=== PATIENT | female | born 1965 | race Caucasian/White ===

== ENCOUNTER 2019-05-25 15:20 | Emergency (ER) | payer SELFPAY ==
[2019-05-25] VITALS (19 sets, daily range): BP systolic 96–128; BP diastolic 54–68; PULSE 57–109; RESP 9–24; TEMP 36.6; O2SAT 95–99
--- NOTE | 2019-05-25 15:38 | DI.CT_ITS ---
SYMPTOM/DIAGNOSIS: TINGLING LEFT ARM AND LOWER LIP CRANIAL CT: 05/[address] was performed. Note is made of small amount of fluid in right mastoid air cells. The mastoid air cells are hypoplastic bilaterally. Minimal mucoperiosteal thickening noted in maxillary antra bilaterally. The orbital and temporal bone structures appear intact. No evidence of acute intracranial hemorrhage, mass effect or midline shift. Incidental cavum septum pellucidum noted. CONCLUSION: Negative cranial CT.
--- NOTE | 2019-05-25 15:38 | DI.CT_ITS ---
SYMPTOM/DIAGNOSIS: CHEST PAIN, SOB RECENT LONG TRIP, TACHY R/O PE CT ANGIOGRAPHY CHEST: 05/25 CT angiography was performed with multi slice acquisition and multi planar and 3D reconstruction. CT angiography of the chest was performed with a bolus infusion of 62 cc of Omnipaque 350. Images obtained through the upper abdomen show probable hepatomegaly. Spleen, pancreas and visualized portions of the adrenals and kidneys are unremarkable. There is no evidence of pulmonary embolic disease. Thoracic aorta is unremarkable in appearance as are its major branches. No mediastinal or hilar adenopathy. Lungs are clear. There is subpleural emphysema and a few intrapulmonary cysts. No pleural effusion seen. CONCLUSION: No evidence of pulmonary embolic disease.
--- NOTE | 2019-05-25 15:44 | ED.GENADUL_ITS ---
Discharge Plan Disposition Patient Disposition: HOME Condition: Good Discharge Details Chief Complaint: Chest Pain Clinical Impression: Hand tingling Primary Care Provider: Selvin Richmond ED Provider: Kiran Tineo Home Meds and New Rx's Prescriptions: No Action furosemide [Lasix] 40 mg Tablet 40 mg PO PRN PRNRF: 0 clopidogrel [Plavix] 75 mg Tablet 75 mg PO DAILY AM RF: 0 gabapentin 300 mg Capsule 300 mg PO TID RF: 0 albuterol sulfate [ProAir HFA] 90 mcg/actuation Hfa Aerosol Inhaler INHALATION RF: 0 loratadine 10 mg Tablet 10 mg PO DAILY AM RF: 0 Discharge Instructions Instructions: Paresthesia (ED) Additional Instructions: At this time there is no evidence of significant heart attack, blood clot in your lungs, or dissection in your chest. Your CT scan of your head shows no signs of stroke. Your calcium is slightly low and this may be causing the tingling. Please take qfoh-mhy-[id number] calcium supplementation daily. Please follow-up with your primary care provider tomorrow at your scheduled appointment. If you notice any worsening of your symptoms, or any new symptoms such as vomiting, diarrhea, fever, chills, shortness of breath, chest pain, numbness, weakness, or fainting , please return immediately to the emergency department for reevaluation. Please follow up with your primary care provider as soon as possible for reassessment and reevaluation. As always, it was a pleasure participating in your medical care today. Referrals: Selvin Richmond [Primary Care Provider] - Medical Decision Making This is a pleasant 53-year-old female with a past medical history of coronary artery disease with stenting x2 in 2014, who presents today for evaluation of tingling in her left fingertips and mild tingling in her lower lip. Patient does admit to recently getting back from a trip from [place] earlier today. Symptoms began 1.5 hours ago. She has no chest tightness or neck pain. No chest symptoms to speak of. She states that the symptoms currently are atypical from her previous cardiac symptom otology. Physical exam demonstrates a normal physical exam, no abnormal lung sounds, normal neurovascul ar exam, no evidence of neurologic deficit. NIH score of 0. she is mildly tachycardic. Differential includes atypical ACS, atypical neurologic abnormality, PE less likely dissection. We will rehydrate, evaluate for significant electrolyte or cardiac abnormality and reassess. Of note she has a notable allergy to aspirin and does not want any nitroglycerin at this time 6 PM Laboratory work-up is returned, no significant abnormalities. Calcium is slightly low at 8.4. Will recommend outpatient calcium supplementation. Troponin is normal, EKG benign. CT scan of the head and chest per Dr. Russell demonstrates no evidence of acute process, stroke, PE or dissection. We will get a repeat delta troponin and EKG and if these remain benign, discuss observation versus discharge with the patient. Currently on reassessment the patient is feeling much better, she does state that she would like to go home. Pending repeat troponin. 7:31 PM Repeat EKG unchanged, heart rate is improved, repeat troponin is within normal limits. Signs and symptoms are consistent with ACS, stroke, or dissection. We discussed risks and benefits of overnight observation at this time the patient would like to go home. She does have a primary care follow-up tomorrow morning. I do feel that this is reasonable. And we will respect her wishes. we discussed red flags which to return, as well as the importance of immediate reassessment tomorrow. Signs and symptoms at this time are clinically inconsistent with ACS. May be secondary to her mildly low calcium, we do recommend rrum-ikm-[id number] calcium supplementation at home. I have extensively reviewed the treatment plan and discharge instructions with the patient. I have addressed all patient concerns at this time. The patient was made aware of what symptoms to monitor for that would warrant a return to the emergency department. Discussed the plan with the patient, they demonstrate verbal understanding and agreement with our assessment and plan at this time. EKG 15: 35 Rate 113, intervals normal, sinus tachycardia, no significant ST elevation or depressions, notable Q wave in lead II, 3, aVF as well as the anterior lateral leads. No evidence of STEMI. EKG 18: 30 Rate 65, [place] 158, QTc 422, QRS 88, no significant ST elevation or depression. Less than 1 mm of elevation in V2, no significant inversions. No depressions. Notable Q waves in 2 3 aVF and V3 through V6. HPI General Date/Time Provider Initiated Documentation: 05/25/19 15:32 . HPI Narrative: This is a 53-year-old female with a past medical history of cardiac disease with previous OH and 2 stents on Plavix, as well as borderline diabetes, regular tobacco use, and family history of cardiac disease who presents today for evaluation of tingling in her left arm and lower lip. Patient states she recently drove back from [facility] earlier today when her symptoms developed. She denies any chest tightness, chest heaviness, arm pain or neck pain. She states that when she had her previous myocardial infarction she had neck pain and chest tightness at that time. She does admit to mild fatigue over the last 4 to 6 hours. The tingling itself is been present for the last 1.5 hours. She denies any shortness of breath, headache, or neck pain. She denies any aggravating or relieving factors, also denies any exertional component. She states that her current symptoms are atypical from when she had her previous OH. She states that she has has tingling in the past like this, and no significant etiology was identified. Patient denies any other complaints at this time. No other modifying factors. Related Data Home Medications Medication Instructions Recorded Confirmed albuterol sulfate [ProAir HFA] INHALATION 05/25/19 clopidogrel [Plavix] 75 mg PO DAILY AM 05/25/19 05/25/19 furosemide [Lasix] 40 mg PO PRN PRN 05/25/19 05/25/19 gabapentin 300 mg PO TID 05/25/19 05/25/19 loratadine 10 mg PO DAILY AM 05/25/19 05/25/19 Allergies Allergy/AdvReac Type Severity Reaction Status Date / Time aspirin Allergy Severe Anaphylaxsi Unverified 05/25/19 15:34 s nitroglycerin Allergy Unverified 05/25/19 15:34 [From Nitroglyn] General Stated Complaint: Chest Pain PENNY: 2 Review of Systems Review of Systems All systems reviewed & are unremarkable except as noted in HPI and below PFSH Social History Smoking/Tobacco Use Status: Current every day Tobacco Type: cigarettes Alcohol Intake: never Drug use: Never Substance use type: does not use Do you feel safe at home: Yes Do you feel safe in your relationship?: Yes Exam Narrative Exam Narrative: 1.Const: Well-nourished, Well-developed, appearing stated age 2.Eyes: PERRL, no conjunctival injection, and symmetrical lids. 3.ENT: Atraumatic external nose and ears. Moist MM. Neck: Symmetric, trachea midline, No thyromegaly. 4.CVS: +S1/S2, No murmurs or gallops. Peripheral pulses 2+ and equal in all extremities. Brisk capillary refill in all extremities. 5.RESP: Unlabored respiratory effort. Clear to auscultation bilaterally. No wheezes rales or rhonchi 6.GI: Soft, Nontender/Nondistended, No hepatosplenomegaly. No guarding or rebound. 7.MSK: Normocephalic/Atraumatic, Extremities w/o deformity or ttp No cyanosis or clubbing, Normal movement of all extremities, no pitting edema 8.Skin: Warm, Dry. No rashes or lesions. 9.Neuro: subject scientific research II-XII grossly intact. Sensation grossly intact, no focal neurologic deficits. All 6 cardinal planes of vision are fully intact. No evidence of rotatory or vertical nystagmus. The patient demonstrated a normal ppjgqm-mwiy-irytgn, good dexterity. There was no evidence of dysdiadochokinesia. Patient was able to ambulate without difficulty. There was no wide-based gait. Romberg, and rrnc-ej-jtjv are both normal on testing. Sensation was intact bilaterally as well as muscle strength bilaterally for all extremities. Patient was able to verbalize butter cup with no slurring, or miss pronunciation. 10.Psych: (AAO) x3. Appropriate mood and affect Course Vital Signs Temperature 36.6 C 05/25/19 15:34 Pulse 109 H 05/25/19 15:34 Respiratory Rate 18 05/25/19 15:34 Blood Pressure 124/67 05/25/19 15:34 Pulse Oximetry 96 05/25/19 15:34 Temperature 36.6 C 05/25/19 15:34 Temperature Source Temporal Artery Scan 05/25/19 15:34 Pulse 109 H 05/25/19 15:34 Respiratory Rate 18 05/25/19 15:34 Blood Pressure 124/67 05/25/19 15:34 Blood Pressure Position Supine 05/25/19 15:34 Pulse Oximetry 96 05/25/19 15:34 Oxygen Delivery Method Room Air 05/25/19 15:34 Oxygen Flow Rate 0 05/25/19 15:34 Pain Level 0 05/25/19 15:34
[2019-05-25 15:49] LABS: Abs Immature Grans 0.03 k/cumm (0.0-0.09); Absolute Eosinophil Count 0.24 k/cumm (0.0-0.7); Absolute Lymphocyte Count 3.35 k/cumm (1.2-3.4); Absolute Monocyte Count 0.95 k/cumm (0.11-0.7); Basophils % 0.3; Eosinophils % 2.1; HCT 43.8 % (36.0-46.0); HGB 15.5 g/dL (12.0-15.5); Immature Grans % 0.3; Lymphocytes % 28.8; Mean Corp. HGB Concentration 35.4 g/dL (32.0-36.0); Mean Corpuscular Hemoglobin 33.6 pg (27.0-33.0); Mean Platelet Volume 9.1 fL (8.0-11.0); Monocytes % 8.2; Neutrophils % 60.3; Platelet Count 379 x1000/uL (130-400); RBC 4.61 m/cumm (4.00-5.20); RBC Distribution Width 13.3 % (11.7-14.6); White Blood Cell Count 11.64 k/cumm (4.4-10.8)
[2019-05-25 15:50] LABS: Absolute Basophil Count 0.03 k/cumm (0.0-0.2); Absolute Neutrophil Count 7.02 k/cumm (1.2-6.7)
[2019-05-25] MEDS: Normal Saline 500 ML 1000 ML IV (16:14)
[2019-05-25 16:21] LABS: ALT 28 U/L (12-78); AST 14 U/L (15-37); Albumin 3.4 g/dL (3.4-5.0); Alkaline Phosphatase 99 U/L (46-116); Anion Gap 9.5 mmol/L (3-11); BUN 12 mg/dL (7-18); Bilirubin, Total 0.2 mg/dL (0.2-1.0); CO2 26.5 mmol/L (21.0-32.0); CREATININE 0.74 mg/dL (0.55-1.02); Calcium 8.4 mg/dL (8.5-10.1); Chloride 103 mmol/L (98-107); Glucose 103 mg/dL (70-100); NT-proBNP 297 pg/mL; Potassium 3.7 mmol/L (3.5-5.1); Sodium 139 mmol/L (136-145); TSH (W/Ref FT4) 2.12 uIU/mL (0.36-3.74); Total Protein 7.6 g/dL (6.4-8.2)
[2019-05-25 16:23] LABS: Troponin I < 0.05 ng/mL (0.00-0.06)
[2019-05-25 16:56] LABS: INR 0.9 (0.9-1.1); PTT Activated 24.2 sec (21.0-31.4); Prothrombin Time 9.1 sec (9.3-11.0)
[2019-05-25] MEDS: Omnipaque 350 MG/ML 100 ML BTL IJ (17:12)
[2019-05-25 17:20] LABS: Bilirubin Negative (Negative); Blood Negative (Negative); Clarity Clear (Clear); Glucose Negative (Negative); Ketones Negative (Negative); Leukocyte Esterase Small (Negative); Nitrite Negative (Negative); Urobilinogen 0.2 EU/dL (Up TO 0.2)
[2019-05-25 17:30] LABS: Bacteria Few HPF (Negative); C & S Indicated? No/Sq. Contamination; Casts Negative LPF (Negative); Crystals Negative HPF (Negative); Epithelial Cells Many HPF (Negative); Mucus Negative (Negative); Other Cells Negative (Negative); RBC Negative (0-2)
[2019-05-25 19:03] LABS: Troponin I < 0.05 ng/mL (0.00-0.06)
== END 2019-05-25 19:38 | disposition home or self-care (01) ==
PROVIDERS: Emergency Provider Student in an Organized Health Care Education/Training Program; PCP Family Medicine
DX: R07.9 Chest pain, unspecified (principal); R20.2 Paresthesia of skin; E83.51 Hypocalcemia; I25.10 Atherosclerotic heart disease of native coronary artery without angina pectoris; Z95.5 Presence of coronary angioplasty implant and graft
CPT/HCPCS: 36415; 71275; 80053; 93005; 99285; 70450; 81003; 81015; 83880; 84443; 84484; 85025; 85610; 85730; 93010; J3490

== ENCOUNTER 2019-07-30 11:00 | Emergency (ER) | payer SELFPAY ==
[2019-07-30 11:05] VITALS: BP 131/86; PULSE 94; RESP 18; TEMP 36.5; O2SAT 98
--- NOTE | 2019-07-30 11:28 | NUR.NOTE ---
pt states that she is safe in her room . when offerd , she asked for a cup of coffeeNursing Note:
--- NOTE | 2019-07-30 11:38 | ED.GENADUL_ITS ---
Discharge Plan Disposition Patient Disposition: HOME Condition: Stable Discharge Details Chief Complaint: PsychEval Clinical Impression: Depression, Encounter for medication refill Primary Care Provider: Selvin Richmond ED Provider: Eric Faith Home Meds and New Rx's Prescriptions: New prazosin 1 mg capsule 1 mg PO QHS 14 Days Qty: 14 RF: 0 lamotrigine [Lamictal] 25 mg tablet 25 mg PO DAILY 14 Days Qty: 14 RF: 0 Continued furosemide [Lasix] 40 mg Tablet 40 mg PO PRN PRNRF: 0 albuterol sulfate [ProAir HFA] 90 mcg/actuation Hfa Aerosol Inhaler INHALATION RF: 0 loratadine 10 mg Tablet 10 mg PO DAILY AM RF: 0 clopidogrel [Plavix] 75 mg Tablet 75 mg PO DAILY AM Qty: 14 RF: 0 gabapentin 300 mg Capsule 300 mg PO TID 14 Days Qty: 42 RF: 0 Discharge Instructions Instructions: Depression (ED) Additional Instructions: At time of discharge please go immediately to [facility] to establish ed health care coverage along with assistance and refilling your prescribed medications. Return immediately to the emergency department for any new or worsening symptoms otherwise feel free to contact [facility] as needed for any psychiatric questions. Referrals: Primary Care Provider [Outside] - 5 days (If able to establish primary care provider it is recommended that you be seen preferably by the end of this week or early next week if possible.) Discharge Data Discharge Date/Time-TO BE ENTERED AT DEPARTURE: 07/30/19 14:00 Medical Decision Making Patient presenting to the emergency department for chief complaint of depression. Patient states that for the last week she has felt increasing depression and yesterday did have some suicidal thoughts. Patient has had attempts at suicide by overdose in the past but today states that she feels better after talking with her son but realizes that she needs to get help. Patient has not taken her psychiatric or other medications since February due to insurance problems. Patient denies any medical complaints at this time just states she is here to restart her psychiatric meds. Physical exam is unremarkable. Plan to have patient assessed by mental health [facility] to look into any further assistance that may be given for med provider for resumption of her psychiatric meds given that patient is here voluntarily, has no active suicidal thoughts, and is seeking help I feel the patient is at low risk. Do plan though to use a patient observer due to patient's recent suicidal thoughts and nature of visit. After discussion with acute mental health assessment team and care management plan for patient to be represcribed some of her medications, and go immediately to [facility] to establish health insurance and provider, and [facility] will follow up on her complaint of depression with worsening episode. Patient does state history of bipolar. Patient's meds were prescribed for the next 2 weeks and these meds were verified with previous visit and and initiation of meds by [facility] in [facility]. Patient to return to the emergency department for any new or significant worsening of symptoms or if she again feels any worsening depression. But at this time I do feel the patient is able to be safely discharged and close follow-up is being arranged both by care management and [facility]. Patient is in full agreement of this plan and states significant relief of anxiety knowing that medications are being initiated and follow-up is being arranged. After discussion of diagnosis and plan of care patient has no further needs, questions, or concerns and states clear understanding to return to the emergency department for any worsening symptoms. HPI General Mode of arrival: ambulatory . Date/Time Provider Initiated Documentation: 07/30/19 11:02 . Limitations to Documentation: no limitations . Information obtained by: patient . History of Present Illness 53 year old F presents to the emergency department with the chief complaint of Depression, described as similar to prior episodes, Quality is described as other (Denies any pain or discomfort), Patient started experiencing this week(s) (1) Patient notes no other symptoms.. Patient did receive the following treatments prior to arrival, none Related Data Home Medications Medication Instructions Recorded Confirmed albuterol sulfate [ProAir HFA] INHALATION 05/25/19 furosemide [Lasix] 40 mg PO PRN PRN 05/25/19 07/30/19 loratadine 10 mg PO DAILY AM 05/25/19 07/30/19 clopidogrel [Plavix] 75 mg PO DAILY AM #14 tab 07/30/19 gabapentin 300 mg PO TID 14 Days #42 cap 07/30/19 lamotrigine [Lamictal] 25 mg PO DAILY 14 Days #14 tab 07/30/19 prazosin 1 mg PO QHS 14 Days #14 cap 07/30/19 Previous Rx's Medication Instructions Recorded clopidogrel [Plavix] 75 mg PO DAILY AM #14 tab 07/30/19 gabapentin 300 mg PO TID 14 Days #42 cap 07/30/19 lamotrigine [Lamictal] 25 mg PO DAILY 14 Days #14 tab 07/30/19 prazosin 1 mg PO QHS 14 Days #14 cap 07/30/19 Allergies Allergy/AdvReac Type Severity Reaction Status Date / Time aspirin Allergy Severe Anaphylaxsi Unverified 07/30/19 11:14 s codeine Allergy Unverified 07/30/19 11:14 nitroglycerin Allergy Unverified 07/30/19 11:14 [From Nitroglyn] General Stated Complaint: PsychEval PENNY: 2 Review of Systems Constitutional Constitutional: Denies chills and Denies fever(s) ENT Ears, Nose, Mouth, and Throat: Denies sore throat Cardiovascular Cardiovascular: Denies chest pain and Denies dyspnea Respiratory Respiratory: Denies cough and Denies dyspnea Genitourinary Genitourinary: Denies dysuria Psychiatric Psychiatric: Reports depression, Denies panic attacks, Denies hallucinations, Denies homicidal ideation and Reports suicidal ideation (None currently) [facility] Social History Smoking/Tobacco Use Status: Current every day Tobacco Type: cigarettes Alcohol Intake: never Drug use: Never Substance use type: does not use Do you feel safe at home: Yes Do you feel safe in your relationship?: Yes Exam Const General: cooperative Orientation: alert, awake and oriented x3 Limitations: mental status not altered HENMT Head: normal to inspection, normocephalic and atraumatic Ears: hearing grossly normal bilaterally Mouth: moist mucous membranes Eyes General: appearance normal, both eyes and all related structures Pupils: PERRL EOM: EOM intact bilaterally Neck Thyroid: thyroid normal Resp Effort & Inspection: normal respiratory effort, able to speak in complete sentences and no respiratory distress Auscultation: clear to auscultation bilaterally Cardio Rate: regular rate and not tachycardic Rhythm: regular rhythm Heart Sounds: S1 normal, S2 normal, no click, no gallops, no murmurs and no rubs Neuro General: alert, awake, oriented x3, gait normal, moves all extremities and no focal motor deficits Cognition: normal cognition Speech: speech normal Psych Speech and Movement: speech and movement normal and speech clear Mood: anxious mood Affect: blunted Attitude: cooperative Thought Process: normal Thought Content: normal, no compulsions, no delusions, no hallucinations, no homicidality and suicidality Course Vital Signs Vital signs: Vital Signs Temperature 36.5 C 07/30/19 11:05 Pulse 94 H 07/30/19 11:05 Respiratory Rate 18 07/30/19 11:05 Blood Pressure 131/86 07/30/19 11:05 Pulse Oximetry 98 07/30/19 11:05 Temperature 36.5 C 07/30/19 11:05 Pulse 94 H 07/30/19 11:05 Respiratory Rate 18 07/30/19 11:05 Blood Pressure 131/86 07/30/19 11:05 Blood Pressure Position Sitting 07/30/19 11:05 Pulse Oximetry 98 07/30/19 11:05 Oxygen Delivery Method Room Air 07/30/19 11:05 Oxygen Flow Rate 0 07/30/19 11:05
--- NOTE | 2019-07-30 13:01 | PDOC.MHCN ---
Mental Health Crisis Note Presenting Issue How did you arrive at the ED and why did you come: Cristina came in because she has been having SI yesterday and has bipolar illness type 1, according to clt. Cristina has been having insurance issues and cannot afford her medications. Precipitating Factors Clna is willing to contract for safety. She presently denies any SI at this present time. She is willing to reach out should SI or HI become an issue. Disposition BEHAVIOR: Highly cooperative and forth coming. EYE CONTACT: Eye contact is good MOOD: pleasant AFFECT: Normal with understandable concern APPETITE: Good SLEEP(trouble falling/staying asleep: Cristina has been having issues with sleep because of inability to afford her meds. Plan Clt will go home with information on how to access ES services should SI or HI become a concern. This worker will try to follow up with clt. The clt is going to be setup with [facility] from [facility] so she can get reestablished with prescriber as well as other PCP services. This worker will submit a referral for services through [facility].
--- NOTE | 2019-07-30 16:03 | PDOC.ERCMPRO ---
- If Service Date Differs Date of service: 07/30/19 Time of Service: 16:03 Care Management Progress Note CM met with in the room she has just met with mental health and has been cleared. will continue to follow up with mental health services after discharge per [facility]. reports she does not have her regular medications to treat her Bipolar or have a primary care provider. CM contacted Ag Lindquist at [facility] and he will see in the office after she discharges from the ED to assist in establishing insurance. is eligible for medicaid she was stopped due to failure to complete paperwork. was given prescriptions for two weeks until she is able to establish primary care. DAMIEN contacted [facility] and was able to obtain a current medication list. Ag will assist in obtaining a new primary care locally. P: is being discharged home she will go to [facility] for insurance, and medication assistance. Follow up with [facility] for therapy options and mental health supports. Plan will be for follow up calls with [facility]. CM provided contact information to the patient for follow up or questions.
== END 2019-07-30 14:00 | disposition home or self-care (01) ==
PROVIDERS: Emergency Provider Nurse Practitioner Family; PCP Family Medicine
DX: F32.9 Major depressive disorder, single episode, unspecified (principal); R45.851 Suicidal ideations; Z91.5 Personal history of self-harm
CPT/HCPCS: 99285; 99284

== ENCOUNTER 2022-02-08 10:52 | Emergency (ER) | payer MEDICAID, SELFPAY ==
[2022-02-08] VITALS (38 sets, daily range): BP systolic 98–149; BP diastolic 58–88; PULSE 56–83; RESP 10–28; TEMP 36.9; O2SAT 93–98
--- NOTE | 2022-02-08 10:45 | RT.EKG_ITS ---
APPROVED REPORT Exam: Resting ECG Reason for Exam: sob Patient Location: E HR:66 bpm ECG Measurements Heart Rate 66 AXIS MN 153 P 21 QRSd 91 QRS 45 QT 400 T 268 QTc 419 Conclusion Sinus rhythm...normal P axis, V-rate 60- 99 Inferior infarct, age indeterminate...Q>35mS, T neg, II III aVF Nonspecific T abnormalities, lateral leads...T <-0.10mV, I aVL V5 V6 Physician: no stemi, st elevation in V1-V3, subtle flattening in V4-V6, Q wave in III. No stemi. unch anged from prior ekg in 05/25/19
--- NOTE | 2022-02-08 11:30 | DI.RAD_ITS ---
Exam(s) XR CHEST 2V PA LATERAL EXAM: XR CHEST 2V PA LATERAL CLINICAL HISTORY: nausea, lip/l hand paresthesias TECHNIQUE: 2D digital imaging was performed. COMPARISON: No exams were available for comparison FINDINGS: MEDIASTINUM: Normal. HEART: Normal. PULMONARY VASCULATURE: Normal. LUNGS: Clear. PLEURAL SPACE: No pleural effusion or pneumothorax. BONE:Unremarkable for age. IMPRESSION: No acute abnormality. DATA REPOSITORY: RADIATION DOSE DELIVERED:
--- NOTE | 2022-02-08 11:33 | DI.CT_ITS ---
Exam(s) CT HEAD WO EXAM: CT HEAD WO CLINICAL HISTORY: lip and left hand paresthesias. TECHNIQUE: Imaging Protocol: Axial computed tomography images with coronal and sagittal reformatted images were created and reviewed COMPARISON: CT CT HEAD WO from 05/25/2019 FINDINGS: Ventricles and Extra axial spaces: Cavum septum pellucidum variant. Normal in size for the patient's age. Hemorrhage: None. Cerebral parenchyma: Normal. Midline shift: None. Brainstem/Cerebellum: Normal. Calvarium: Normal. Visualized Paranasal sinuses/Mastoids: Clear. Soft Tissues: Unremarkable. IMPRESSION: No acute intracranial process. RADIATION DOSE DELIVERED: 704.72mGy.cm Total DLP DATA REPOSITORY: All CT scans at this facility are submitted to the National Radiology Data Registry (NRDR) Dose Index Registry (DIR) with the [employer] (ACR). RADIATION OPTIMIZATION: All CT scans at this facility use at least one of these dose optimization te chniques: automated exposure control; mA and/or kV adjustment per patient size (includes targeted exa ms where dose is matched to clinical indication); or iterative reconstruction.
--- NOTE | 2022-02-08 11:37 | W.ED.GENAD ---
Discharge Plan Disposition Patient Disposition: HOME Condition: Improving Discharge Details Clinical Impression: Nausea, Paresthesias in left hand Primary Care Provider: Erin Blum ED Provider: Daniel Saha Home Meds and New Rx's Prescriptions: New ondansetron 4 mg tablet,disintegrating 4 mg PO TID PRN3 Days Qty: 9 0RF Continued (DME) Aerochamber Mini Spacer See Rx Instructions .ROUTE 0RF Rx Instructions: As directed albuterol sulfate 2.5 mg /3 mL (0.083 %) solution for nebulization 2.5 mg inhalation Q6H 0RF Anoro Ellipta 62.5-25 mcg/actuation blister with device 1 inh inhalation DAILY 0RF atorvastatin 40 mg tablet 40 mg PO DAILY 0RF clotrimazole 1 % cream 1 applic topical BID 0RF epinephrine 0.3 mg/0.3 mL auto-injector 0.3 mg IM ONCE 0RF Rx Instructions: as a single dose; may repeat once fluticasone propionate 50 mcg/actuation spray,suspension 1 spray intranasal DAILY 0RF Rx Instructions: administer into each nostril nicotine 21 mg/24 hr patch 24 hour 1 patch transdermal DAILY 0RF omeprazole 40 mg capsule,delayed release(DR/EC) 40 mg PO DAILY 0RF furosemide [Lasix] 40 mg Tablet 40 mg PO PRN PRN0RF Rx Instructions: No medical insurance, cannot afford albuterol sulfate [ProAir HFA] 90 mcg/actuation Hfa Aerosol Inhaler INHALATION 0RF Label Comments: No medical insurance, cannot afford loratadine 10 mg Tablet 10 mg PO DAILY AM 0RF clopidogrel [Plavix] 75 mg Tablet 75 mg PO DAILY AM Qty: 14 0RF Rx Instructions: No medical insurance, cannot afford gabapentin 300 mg Capsule 300 mg PO TID 14 Days Qty: 42 0RF Rx Instructions: No medical insurance, cannot afford Discharge Instructions Instructions: Acute Nausea and Vomiting (ED), Paresthesia (ED) Additional Instructions: Work-up in the ER does not reveal any obvious emergent process. You responded nicely to [facility] feeling much improved. As we discussed, your symptoms could be related to a TIA and we discussed observation to our facility but you have requested discharge home. Please watch for new or worsening symptoms and return to the ER for any concerns. Lastly, please contact your primary care provider later today or tomorrow to discuss your ER visit need for outpatient reevaluation. Discharge Data Discharge Date/Time-TO BE ENTERED AT DEPARTURE: 02/08/22 14:45 Medical Decision Making 56-year-old female, current smoker, past medical history of IN, stents x2, COPD, GERD, bipolar disorder, hyperlipidemia, presents to the ER reporting nausea and paresthesias that began around 1:00 this morning. Clinically she appears well, nontoxic, neurologically intact. She specifically is concerned of my heart but denies any chest pain or shortness of breath other than her baseline COPD. She has a anaphylactic reaction to aspirin so will not provide that medication. Given her subjective complaints, will obtain cardiac work-up including D-dimer as well as CT of her head. Will provide 1 L IV fluid as well as 4 mg IV Zofran. Patient reports significant improvement of her symptoms with Zofran, is requesting food, will await her work-up before p.o. challenging. No evidence of leukocytosis, anemia, her platelet count is 432. INR 0.9, D-dimer is elevated at 1009. Will pursue CTA of the chest. Electrolytes are unremarkable, creatinine 0.7 with a GFR greater than 60. Magnesium 2.0, troponin less than 50, TSH 2.15, urinalysis unremarkable, COVID-negative. Chest x-ray unremarkable. Patient reports that the paresthesias are resolving, denies any nausea. Agreeable to awaiting CTA of her chest and delta troponin Head CT unremarkable. Chest CTA unremarkable. Delta troponin remains less than 50. Discussed work-up and presentation with patient in length. She reports that her nausea is much improved and her paresthesias have almost completely resolved. We did discuss observation admission for her ongoing neurological symptoms, concern for TIA, etc. the patient declines. Patient reports that she is feeling improvement, requesting a prescription of Zofran to go home with, and would like to go home and follow-up with her primary care provider. She does understand the risks of discharge. Patient neurologically intact upon discharge. Able to tolerate p.o. intake without difficulty. Strict discharge and return precautions were provided. Patient understands, is agreeable to this plan, and has no additional questions or concerns upon discharge. This documentation was generated using [employer] system, please disregard any oddities of phrase or misspellings. Medical Records Medical records reviewed: Yes I reviewed the patient's medical records. Imaging Data Radiologic Study: Attestation: I personally reviewed and interpreted this imaging study as follows: Imaging: X-Ray Radiologist's impression: Exam(s) XR CHEST 2V PA LATERAL EXAM: XR CHEST 2V PA LATERAL CLINICAL HISTORY: nausea, lip/l hand paresthesias TECHNIQUE: 2D digital imaging was performed. COMPARISON: No exams were available for comparison FINDINGS: MEDIASTINUM: Normal. HEART: Normal. PULMONARY VASCULATURE: Normal. LUNGS: Clear. PLEURAL SPACE: No pleural effusion or pneumothorax. BONE:Unremarkable for age. IMPRESSION: No acute abnormality. Radiologic Study #2: Attestation: I personally reviewed and interpreted this imaging study as follows: Imaging: CT Scan Radiologist's impression: Exam(s) CT HEAD WO EXAM: CT HEAD WO CLINICAL HISTORY: lip and left hand paresthesias. TECHNIQUE: Imaging Protocol: Axial computed tomography images with coronal and sagittal reformatted images were created and reviewed COMPARISON: CT CT HEAD WO from 05/25/2019 FINDINGS: Ventricles and Extra axial spaces: Cavum septum pellucidum variant. Normal in size for the patient's age. Hemorrhage: None. Cerebral parenchyma: Normal. Midline shift: None. Brainstem/Cerebellum: Normal. Calvarium: Normal. Visualized Paranasal sinuses/Mastoids: Clear. Soft Tissues: Unremarkable. IMPRESSION: No acute intracranial process. Radiologic Study #3: Attestation: I personally reviewed and interpreted this imaging study as follows: Imaging: CT Scan Radiologist's impression: Exam(s) CT CHEST PE CTA EXAM: CT CHEST PE CTA CLINICAL HISTORY: elevated dimer, paresthesia, chronic sob. TECHNIQUE: Imaging Protocol: Axial CT angiography was performed with multi-slice acquisition and multi-planar reconstructions as well as axial, coronal and sagittal MIP reconstructions. CONTRAST MATERIAL: Intravenous: Omnipaque 350 Contrast volume:structured data in ml COMPARISON: CT CT CHEST PE CTA from 05/25/2019 CR XR CHEST 2V PA LATERAL from 02/08/2022 FINDINGS: Pulmonary Arteries: No evidence of filling defect to suggest pulmonary emboli. Tracheobronchial tree: Patent where visualized. Mediastinum and Cecilia: No dominant adenopathy or fluid collection. Pulmonary parenchyma: No consolidation or dominant measurable mass. A few scattered pulmonary cysts are noted. Pleura: No effusion or pneumothorax. Heart: The heart is not dilated. No coronary artery calcifications are seen. Aorta: Thoracic aorta non-dilated. No aneurysm. No dissection. Mild atherosclerotic changes. Upper abdomen: Enlarged fatty liver. Status post cholecystectomy. Bones: Unremarkable for age. Tubes, Catheters, and Lines: None IMPRESSION: No evidence of pulmonary embolism or other acute abnormality. Lab Data Lab results reviewed: Yes I reviewed the patient's lab results. Labs: Laboratory Tests Range/Units 02/08/22 02/08/22 02/08/22 11:39 11:39 11:39 WBC (4.4-10.8) 10^3/uL 9.97 RBC (3.93-5.22) 10^6/uL 4.52 Hgb (11.2-15.7) g/dL 14.7 Hct (36.0-46.0) % 43.8 MCV (80-95) fL 96.9 H MCH (27.0-33.0) pg 32.5 MCHC (32.0-36.0) % 33.6 RDW (11.7-14.6) % 12.2 Plt Count (130-400) 10^3/uL 432 H MPV (8.0-11.0) fL 9.4 Immature Gran % 0.3 Neutrophils % 59.5 Lymphocytes % 31.2 Monocytes % 6.0 Eosinophils % 2.4 Basophils % 0.6 Nucleated RBC % (0.0-0.3) % 0.0 Absolute Neutrophils (1.2-6.7) 10^3/uL 5.93 Absolute Lymphocytes (1.2-3.4) 10^3/uL 3.11 Absolute Monocytes (0.1-0.8) 10^3/uL 0.60 Absolute Eosinophils (0.0-0.7) 10^3/uL 0.24 Absolute Basophils (0.0-0.2) 10^3/uL 0.06 PT (9.3-11.0) sec 9.2 L INR (0.9-1.1) 0.9 APTT (21.0-27.5) sec 26.3 D-Dimer (<500) ng/mlFEU 1009 H Sodium (136-145) mmol/L 137 Potassium (3.5-5.1) mmol/L 3.8 Chloride (98-107) mmol/L 104 Carbon Dioxide (21.0-32.0) mmol/L 26.3 Anion Gap (3-11) mmol/L 6.7 BUN (7-18) mg/dL 14 Creatinine (0.55-1.02) mg/dL 0.7 Estimated GFR/1.73 m2 (mL/min/1.73m2) >= 60.00 Glucose (74-106) mg/dL 107 H Calcium (8.5-10.1) mg/dL 9.0 Magnesium (1.8-2.4) mg/dL 2.0 Total Bilirubin (0.2-1.0) mg/dL 0.2 AST (15-37) U/L 23 ALT (14-59) U/L 32 Alkaline Phosphatase (46-116) U/L 89 Troponin I (<or=60) ng/L < 50 Total Protein (6.4-8.2) g/dL 7.5 Albumin (3.4-5.0) g/dL 3.4 TSH (0.36-3.74) uIU/mL 2.15 Urine Color (Yellow) Urine Clarity (Clear) Urine pH (5-8) Ur Specific [place] (1.005-1.025) Urine Protein (Negative) mg/dL Urine Ketones (Negative) mg/dL Urine Blood (Negative) Urine Nitrite (Negative) Urine Bilirubin (Negative) Urine Urobilinogen (Up TO 0.2) EU/dL Ur Leukocyte Esterase (Negative) Urine Glucose (Negative) mg/dL COVID-19 Source SARS-CoV-2 (PCR) (Negative) Range/Units 02/08/22 02/08/22 02/08/22 11:39 13:00 13:52 WBC (4.4-10.8) 10^3/uL RBC (3.93-5.22) 10^6/uL Hgb (11.2-15.7) g/dL Hct (36.0-46.0) % MCV (80-95) fL MCH (27.0-33.0) pg MCHC (32.0-36.0) % RDW (11.7-14.6) % Plt Count (130-400) 10^3/uL MPV (8.0-11.0) fL Immature Gran % Neutrophils % Lymphocytes % Monocytes % Eosinophils % Basophils % Nucleated RBC % (0.0-0.3) % Absolute Neutrophils (1.2-6.7) 10^3/uL Absolute Lymphocytes (1.2-3.4) 10^3/uL Absolute Monocytes (0.1-0.8) 10^3/uL Absolute Eosinophils (0.0-0.7) 10^3/uL Absolute Basophils (0.0-0.2) 10^3/uL PT (9.3-11.0) sec INR (0.9-1.1) APTT (21.0-27.5) sec D-Dimer (<500) ng/mlFEU Sodium (136-145) mmol/L Potassium (3.5-5.1) mmol/L Chloride (98-107) mmol/L Carbon Dioxide (21.0-32.0) mmol/L Anion Gap (3-11) mmol/L BUN (7-18) mg/dL Creatinine (0.55-1.02) mg/dL Estimated GFR/1.73 m2 (mL/min/1.73m2) Glucose (74-106) mg/dL Calcium (8.5-10.1) mg/dL Magnesium (1.8-2.4) mg/dL Total Bilirubin (0.2-1.0) mg/dL AST (15-37) U/L ALT (14-59) U/L Alkaline Phosphatase (46-116) U/L Troponin I (<or=60) ng/L < 50 Total Protein (6.4-8.2) g/dL Albumin (3.4-5.0) g/dL TSH (0.36-3.74) uIU/mL Urine Color (Yellow) Yellow Urine Clarity (Clear) Clear Urine pH (5-8) 7.0 Ur Specific [place] (1.005-1.025) 1.020 Urine Protein (Negative) mg/dL Negative Urine Ketones (Negative) mg/dL Negative Urine Blood (Negative) Negative Urine Nitrite (Negative) Negative Urine Bilirubin (Negative) Negative Urine Urobilinogen (Up TO 0.2) EU/dL 0.2 Ur Leukocyte Esterase (Negative) Negative Urine Glucose (Negative) mg/dL Negative COVID-19 Source Nasal/Nares SARS-CoV-2 (PCR) (Negative) Negative ECG Data Attestation: I personally reviewed and interpreted this ECG (s) as follows: Interpretation: Please see official report by Dr. Tineo. Sinus rhythm, ventricular to 66. No STEMI. ST elevation in V1 through V3, subtle flattening in V4 through 6, Q wave in 3. Unchanged from prior EKG on HPI General Mode of arrival: EMS. Date/Time Provider Initiated Documentation: 02/08/22 10:56. Limitations to Documentation: no limitations. Information obtained by: patient and EMS. HPI Narrative: This is a 56-year-old female, past medical history of hyperlipidemia, IN with 2 stents, takes Plavix daily, bipolar disorder, PTSD, GERD, COPD, current smoker, presenting to the ER reporting nausea, paresthesias around her lips and paresthesias to her left hand, specifically the tips of all of her 4 fingers but not her thumb. Patient states in general she has not felt right in a couple of days but cannot describe exactly what she was feeling. She states that around 1:00 this morning she awoke and felt nauseous and had her paresthesias. She did vomit x1. She denies headache, visual changes, neck pain, chest pain, worsening shortness of breath than her baseline, cough, abdominal pain, back pain, bowel or bladder changes, focal numbness or weakness. Patient specifically is concerned that this could be my heart but reports that this feels nothing like her IN. She also states that she has seasonal allergies and wonders if the seasonal allergies could be causing her symptoms. Patient reports anaphylactic allergic reaction to aspirin Related Data Home Medications Medication Instructions Recorded Confirmed albuterol sulfate 90 mcg/actuation INHALATION 05/25/19 aerosol inhaler (ProAir HFA) furosemide 40 mg tablet (Lasix) 40 mg PO PRN PRN 05/25/19 02/08/22 loratadine 10 mg tablet 10 mg PO DAILY AM 05/25/19 02/08/22 clopidogrel 75 mg tablet (Plavix) 75 mg PO DAILY AM #14 tab 07/30/19 02/08/22 gabapentin 300 mg capsule 300 mg PO TID 14 Days #42 cap 07/30/19 02/08/22 albuterol sulfate 2.5 mg INHALATION Q6H 12/06/21 02/08/22 atorvastatin 40 mg tablet 40 mg PO DAILY 12/06/21 clotrimazole 1 % topical cream 1 applic TOPICAL BID 12/06/21 epinephrine 0.3 mg/0.3 mL 0.3 mg IM ONCE 12/06/21 02/08/22 injection, auto-injector fluticasone propionate 50 1 spray INTRANASAL DAILY 12/06/21 mcg/actuation nasal spray,suspension inhalational spacing device 12/06/21 (Aerochamber Mini) nicotine 21 mg/24 hr daily 1 patch TRANSDERMAL DAILY 12/06/21 transdermal patch omeprazole 40 mg capsule,delayed 40 mg PO DAILY 12/06/21 release umeclidinium 62.5 mcg-vilanterol 1 inh INHALATION DAILY 12/06/21 25 mcg/actuation powdr for inhalation (Anoro Ellipta) ondansetron 4 mg disintegrating 4 mg PO TID PRN 3 Days #9 tab 02/08/22 tablet Previous Rx's Medication Instructions Recorded clopidogrel 75 mg tablet (Plavix) 75 mg PO DAILY AM #14 tab 07/30/19 gabapentin 300 mg capsule 300 mg PO TID 14 Days #42 cap 07/30/19 ondansetron 4 mg disintegrating 4 mg PO TID PRN 3 Days #9 tab 02/08/22 tablet Allergies Allergy/AdvReac Type Severity Reaction Status Date / Time aspirin Allergy Severe Anaphylaxsi Unverified 07/30/19 11:14 s codeine Allergy Unverified 07/30/19 11:14 nitroglycerin Allergy Unverified 07/30/19 11:14 [From Nitroglyn] General Stated Complaint: GenMedical PENNY: 3 Review of Systems Constitutional Constitutional: Denies fatigue, Denies fever(s), Denies headache(s) and Denies weakness Eyes Eyes: Denies change in vision ENT Ears, Nose, Mouth, and Throat: Denies headache(s) Cardiovascular Cardiovascular: Denies chest pain and Reports dyspnea (chronic) Respiratory Respiratory: Denies cough and Reports dyspnea (chronic) Gastrointestinal Gastrointestinal: Denies abdominal pain, Denies constipation, Denies diarrhea, Reports nausea and Reports vomiting Genitourinary Genitourinary: Denies dysuria and Denies urinary incontinence Musculoskeletal Musculoskeletal: Denies back pain, Denies numbness and Reports tingling Integumentary/Breasts Skin/Breast: Denies rash Neurologic Neurologic: Denies headache(s), Denies numbness, Reports tingling and Denies weakness Endocrine Endocrine: Denies fatigue Hematologic/Lymphatic Hematologic/Lymphatic: Reports easy bleeding and Reports easy bruising PFSH All Active Problems Nausea (Acute) Paresthesias in left hand (Acute) Difficulty sleeping (Acute) Chronic post-traumatic stress disorder (PTSD) (Acute) Excoriation (skin-picking) disorder (Acute) Major depressive disorder (Chronic) Myocardial infarction (Chronic) Chronic fatigue (Acute) COPD (chronic obstructive pulmonary disease) (Chronic) GERD without esophagitis (Acute) Post traumatic stress disorder (Acute) Bipolar disorder (Acute) ASCVD (arteriosclerotic cardiovascular disease) (Acute) Xanthelasma of left eye, unspecified eyelid (Acute) Medical History Hyperlipidemia Family History Mother COPD (chronic obstructive pulmonary disease) High cholesterol Hypertension Heart disease Stroke Daughter Affective bipolar disorder Son Osteoarthritis Asthma Sister High cholesterol Osteoporosis Diabetes Hypertension Heart disease Cancer Maternal Grandfather Diabetes Maternal Grandmother Diabetes Paternal Grandmother Diabetes Social History Smoking/Tobacco Use Status: Current every day Tobacco Type: cigarettes Smoking packs per day: 0.7 Smoking cigarettes per day: 14.0 Smoking risk assessment performed?: Yes Alcohol Intake: never Drug use: Never Substance use type: does not use Do you feel safe at home: Yes Do you feel safe in your relationship?: Yes Exam Const General: cooperative, healthy appearing, comfortable, no acute distress and anxious Orientation: alert, awake and oriented x3 HENMT Head: normal to inspection, normocephalic and atraumatic Face and sinus: normal facial exam Mouth: moist mucous membranes Eyes General: appearance normal, both eyes and all related structures Alignment and Position: alignment normal Periorbital: periorbital findings normal Eyelids: eyelids normal Conjunctivae: conjunctivae normal Sclera: sclerae normal Cornea: corneas normal Pupils: PERRL EOM: EOM intact bilaterally Direct ophthalmoscopy: normal light reflex Neck Neck: normal visual inspection, full ROM, no meningeal signs, trachea midline, supple and nontender Resp Effort & Inspection: normal respiratory effort and able to speak in complete sentences Auscultation: diminished lung sounds bilaterally in the lower lung nunez Cardio Rate: regular rate Rhythm: regular rhythm GI Palpation: soft, not firm, no guarding, no pulsatile masses and nontender Auscultation: normal bowel sounds Back/Spine/Pelvis Back: No back tenderness Skin General skin exam: no rashes or lesions noted Neuro General: patient alert, patient awake, patient oriented x3, moves all extremities and no focal motor deficits Cranial Nerves: CN's II-XI intact bilaterally Cognition: normal cognition Speech: speech normal Gait: normal gait Motor: muscle tone normal throughout, strength 5/5 throughout, no pronator drift, no movement abnormalities noted and no fasciculations Sensory Exam: no sensory deficits noted Coordination: [id number] test normal Extrem General: normal to inspection, full ROM, capillary refill normal, no pedal edema and no calf tenderness Psych Appearance: grossly normal Mental Status: mental status grossly normal Course Vital Signs Vital signs: Vital Signs Temperature 36.9 C 02/08/22 10:54 Pulse 70 02/08/22 10:54 Respiratory Rate 16 02/08/22 10:54 Blood Pressure 149/58 H 02/08/22 10:54 Pulse Oximetry 98 02/08/22 10:54 Temperature 36.9 C 02/08/22 10:54 Temperature Source Tympanic 02/08/22 10:54 Pulse 70 02/08/22 10:54 Respiratory Rate 16 02/08/22 10:54 Respiratory Effort Non-Labored 02/08/22 11:06 Blood Pressure 149/58 H 02/08/22 10:54 Pulse Oximetry 98 02/08/22 10:54 Oxygen Delivery Method Room Air 02/08/22 10:54 Oxygen Flow Rate 0 02/08/22 10:54 Pain Level 0 02/08/22 10:54
[2022-02-08 11:45] LABS: Source Nasal/Nares
[2022-02-08 11:48] LABS: Abs Immature Grans 0.03 10^3/uL (0.0-0.06); Absolute Basophil Count 0.06 10^3/uL (0.0-0.2); Absolute Eosinophil Count 0.24 10^3/uL (0.0-0.7); Absolute Lymphocyte Count 3.11 10^3/uL (1.2-3.4); Absolute Neutrophil Count 5.93 10^3/uL (1.2-6.7); Basophils % 0.6; Eosinophils % 2.4; HCT 43.8 % (36.0-46.0); HGB 14.7 g/dL (11.2-15.7); Immature Grans % 0.3; Lymphocytes % 31.2; MCH 32.5 pg (27.0-33.0); MCHC 33.6 % (32.0-36.0); MCV 96.9 fL (80-95); MPV 9.4 fL (8.0-11.0); Neutrophils % 59.5; Platelet Count 432 10^3/uL (130-400); RBC 4.52 10^6/uL (3.93-5.22); RDW 12.2 % (11.7-14.6); RDW-SD 43.8 fL; WBC 9.97 10^3/uL (4.4-10.8)
[2022-02-08] MEDS: Ondansetron 4 MG/2 ML VIAL IVP (11:48)
[2022-02-08] MEDS: Normal Saline 1,000 ML 125 ML IV (11:48)
[2022-02-08 12:03] LABS: INR 0.9 (0.9-1.1); PTT Activated 26.3 sec (21.0-27.5); Prothrombin Time 9.2 sec (9.3-11.0)
[2022-02-08 12:14] LABS: ALT 32 U/L (14-59); AST 23 U/L (15-37); Albumin 3.4 g/dL (3.4-5.0); Alkaline Phosphatase 89 U/L (46-116); Anion Gap 6.7 mmol/L (3-11); BUN 14 mg/dL (7-18); Bilirubin, Total 0.2 mg/dL (0.2-1.0); CO2 26.3 mmol/L (21.0-32.0); CREATININE 0.7 mg/dL (0.55-1.02); Chloride 104 mmol/L (98-107); Glucose 107 mg/dL (74-106); Potassium 3.8 mmol/L (3.5-5.1); Sodium 137 mmol/L (136-145); TSH (W/Ref FT4) 2.15 uIU/mL (0.36-3.74); Total Protein 7.5 g/dL (6.4-8.2); Troponin I < 50 ng/L (<or=60)
[2022-02-08 12:24] LABS: COVID-19 PCR Negative (Negative)
[2022-02-08 12:27] LABS: D-Dimer 1009 ng/mlFEU (<500)
--- NOTE | 2022-02-08 12:29 | DI.CT_ITS ---
Exam(s) CT CHEST PE CTA EXAM: CT CHEST PE CTA CLINICAL HISTORY: elevated dimer, paresthesia, chronic sob. TECHNIQUE: Imaging Protocol: Axial CT angiography was performed with multi-slice acquisition and mu lti-planar reconstructions as well as axial, coronal and sagittal MIP reconstructions. CONTRAST MATERIAL: Intravenous: Omnipaque 350 Contrast volume:structured data in ml COMPARISON: CT CT CHEST PE CTA from 05/25/2019 CR XR CHEST 2V PA LATERAL from 02/08/2022 FINDINGS: Pulmonary Arteries: No evidence of filling defect to suggest pulmonary emboli. Tracheobronchial tree: Patent where visualized. Mediastinum and Cecilia: No dominant adenopathy or fluid collection. Pulmonary parenchyma: No consolidation or dominant measurable mass. A few scattered pulmonary cysts a re noted. Pleura: No effusion or pneumothorax. Heart: The heart is not dilated. No coronary artery calcifications are seen. Aorta: Thoracic aorta non-dilated. No aneurysm. No dissection. Mild atherosclerotic changes. Upper abdomen: Enlarged fatty liver. Status post cholecystectomy. Bones: Unremarkable for age. Tubes, Catheters, and Lines: None IMPRESSION: No evidence of pulmonary embolism or other acute abnormality. RADIATION DOSE DELIVERED: 326.18mGy.cm Total DLP DATA REPOSITORY: All CT scans at this facility are submitted to the National Radiology Data Registry (NRDR) Dose Index Registry (DIR) with the [employer] ([employer]). RADIATION OPTIMIZATION: All CT scans at this facility use at least one of these dose optimization te chniques: automated exposure control; mA and/or kV adjustment per patient size (includes targeted exa ms where dose is matched to clinical indication); or iterative reconstruction.
[2022-02-08 13:10] LABS: Bilirubin Negative (Negative); Blood Negative (Negative); Clarity Clear (Clear); Glucose Negative (Negative); Ketones Negative (Negative); Leukocyte Esterase Negative (Negative); Nitrite Negative (Negative); Urobilinogen 0.2 EU/dL (Up TO 0.2)
[2022-02-08] MEDS: Omnipaque 350 MG/ML 100 ML BTL 62 ML IJ (13:31)
[2022-02-08] MEDS: Normal Saline Flush 10 ML SYR IVP (13:32)
[2022-02-08 14:18] LABS: Troponin I < 50 ng/L (<or=60)
== END 2022-02-08 14:45 | disposition home or self-care (01) ==
PROVIDERS: Emergency Provider Physician Assistant; PCP Nurse Practitioner Family
DX: R20.2 Paresthesia of skin (principal); R11.0 Nausea; R06.02 Shortness of breath; R79.1 Abnormal coagulation profile; Z20.822 Contact with and (suspected) exposure to COVID-19
CPT/HCPCS: 71275; 80053; 87635; 93005; 96361; 96374; 99285; 70450; 71046; 81003; 83735; 84443; 84484; 85025; 85379; 85610; 85730; 93010; J2405; J3490

== ENCOUNTER 2022-02-22 00:17 | Outpatient (CLI) | payer MEDICAID, SELFPAY ==
--- NOTE | 2022-02-22 06:45 | DI.CTLCSR_ITS ---
Exam(s) CT CHEST LUNG CANCER SCREEN EXAM: CT CHEST LUNG CANCER SCREEN CLINICAL HISTORY: Screening for lung cancer,current smoker, f17.200 TECHNIQUE: Imaging Protocol: Axial computed tomography images with coronal and sagittal reformatted images were created and reviewed COMPARISON: CT CT CHEST PE CTA from 05/25/[address] CHEST PE CTA from 02/08/2022 FINDINGS: Tracheobronchial tree: No bronchiectasis or mucus plugging. Mediastinum and Cecilia: No dominant adenopathy or fluid collection. Pulmonary parenchyma: No consolidation or dominant measurable mass. Minimal emphysematous changes upp er lobes.. Stable cysts right middle and lower lobes.. Lung Nodules: 3 millimeter peripheral nodules left lower lobe. Pleura: No effusion or pneumothorax. Heart: The heart is not dilated. [id number] coronary artery calcifications are seen. Aorta: Thoracic aorta non-dilated.Mild calcifications. Upper abdomen: Unremarkable. Bones: Unremarkable for age.. Soft Tissues: Unremarkable. IMPRESSION: Stable tiny nodules left lower lobe, no change 2018. Category Lung RADS Cat 2 - Benign Appearance / Behavior: Nodules with a very low likelihood of becomi ng a clinically active cancer due to size or lack of growth Lung-RADS 1.0 CATEGORIES: Category 0 - Prior chest CT exam(s) being located for comparison. Category 1 - Annual screening in 12 months. No nodules or definitely benign nodules. Category 2 - Annual screening in 12 months. Benign appearance. Nodules with low likelihood of becomin g active cancer. Category 3 - 6-month follow-up. Probably benign. Short-term follow-up suggested. Nodules with low lik elihood of becoming active cancer. Category 4A - 3-month follow-up and CT/PET if >8 mm in size. Suspicious finding. Findings which requi re additional testing. Category 4B - Findings which require additional testing and tissue sampling. Category 4X - Category 3 or 4 nodules with additional features or imaging findings that increases the suspicion of malignancy. Modifier S- Potentially clinically significant findings (non lung cancer) RADIATION DOSE DELIVERED: 72.48mGy.cm Total DLP 1.84mGy CTDIvol DATA REPOSITORY: All CT scans at this facility are submitted to the National Radiology Data Registry (NRDR) Dose Index Registry (DIR) with the [employer] ([employer]). RADIATION OPTIMIZATION: All CT scans at this facility use at least one of these dose optimization te chniques: automated exposure control; mA and/or kV adjustment per patient size (includes targeted exa ms where dose is matched to clinical indication); or iterative reconstruction.
== END 2022-02-22 00:37 ==
PROVIDERS: PCP Nurse Practitioner Family; Visit Provider Student in an Organized Health Care Education/Training Program
DX: Z12.2 Encounter for screening for malignant neoplasm of respiratory organs (principal); F17.210 Nicotine dependence, cigarettes, uncomplicated; J98.4 Other disorders of lung; J43.8 Other emphysema
CPT/HCPCS: 71271

== ENCOUNTER 2022-03-06 08:42 | Emergency (ER) | payer MEDICAID, SELFPAY ==
[2022-03-06 08:49] VITALS: BP 142/63; PULSE 71; RESP 16; TEMP 36.3; O2SAT 98
--- NOTE | 2022-03-06 09:30 | RT.EKG_ITS ---
APPROVED REPORT Exam: Resting ECG Reason for Exam: near syncope Patient Location: E HR:58 bpm ECG Measurements Heart Rate 58 AXIS MO 162 P 21 QRSd 86 QRS 56 QT 431 T 256 QTc 425 Conclusion Sinus bradycardia...rate< 60 Consider anterolateral infarct...Q >30mS, I aVL V3-V6,I,aVL sinus bradycardia at 58, normal axis, ST changes as seen on prior 02/08/22, no STEMI, nondiagnostic EK G
--- NOTE | 2022-03-06 09:43 | W.ED.GENAD ---
Discharge Plan Disposition Patient Disposition: AGAINST MEDICAL ADVICE Condition: Stable Discharge Details Clinical Impression: Back pain, Lightheadedness Primary Care Provider: Erin Blum ED Provider: Armida Santoyo Home Meds and New Rx's Prescriptions: Continued ipratropium-albuterol 0.5 mg-3 mg(2.5 mg base)/3 mL solution for nebulization 3 ml inhalation QID PRN Breztri Aerosphere 160-9-4.8 mcg/actuation HFA aerosol inhaler 2 inh inhalation BID Qty: 10.7 7RF (DME) Aerochamber Mini Spacer See Rx Instructions .ROUTE Rx Instructions: As directed atorvastatin 40 mg tablet 40 mg PO DAILY clotrimazole 1 % cream 1 applic topical BID epinephrine 0.3 mg/0.3 mL auto-injector 0.3 mg IM ONCE Rx Instructions: as a single dose; may repeat once fluticasone propionate 50 mcg/actuation spray,suspension 1 spray intranasal DAILY Rx Instructions: administer into each nostril nicotine 21 mg/24 hr patch 24 hour 1 patch transdermal DAILY omeprazole 40 mg capsule,delayed release(DR/EC) 40 mg PO DAILY furosemide [Lasix] 40 mg Tablet 40 mg PO PRN PRN Rx Instructions: No medical insurance, cannot afford loratadine 10 mg Tablet 10 mg PO DAILY AM prazosin 1 mg capsule 1 cap PO .QHS clopidogrel [Plavix] 75 mg Tablet 75 mg PO DAILY AM Qty: 14 0RF Rx Instructions: No medical insurance, cannot afford gabapentin 300 mg Capsule 300 mg PO TID 14 Days Qty: 42 0RF Rx Instructions: No medical insurance, cannot afford Discharge Instructions Instructions: Syncope (ED), Near Syncope (ED), Back Pain (ED) Additional Instructions: You have elected to leave the emergency department AGAINST MEDICAL ADVICE. The risks of doing so are or permanent disability. You may return to emergency department anytime if you change your mind. Please return immediately to the emergency department if you develop any new or worsening symptoms, if your condition does not improve as expected, or if you become otherwise concerned. It is extremely important that you call soon as possible to make an appointment to be seen in follow-up for this visit by your primary care doctor. Referrals: Erin Blum [Primary Care Provider] - Discharge Data Discharge Date/Time-TO BE ENTERED AT DEPARTURE: 03/06/22 13:25 Medical Decision Making Sandra Smith is a 56-year-old woman with a history of coronary artery disease, COPD, GERD presenting to the emergency department with left-sided back pain. Patient reports that on the morning of 03/04/2022 patient took a shower. She reports that while getting out of the shower she fell, hitting her left lower back on either the outside of the shower or the toilet. Patient reports that she started taking prazosin to help with sleep on 03/02/2022. Patient reports that since starting that medication she has noticed that she feels quite winded headed. She takes medication before bed, but typically gets up multiple times in the night to go to the bathroom and has noticed that she feels lightheaded when she gets up. She has also had some morning lightheadedness. Patient states that she is unsure whether her fall on the morning of 03/04 was due to a slipping as she got out of the shower or do to feeling lightheaded. She is unsure if she lost consciousness. She does not recall feeling lightheaded prior to fall, or other symptoms prior to fall. Patient states that she had left low back pain immediately after the fall, which has persisted. She reports that pain is worse with changing position, and flexing either of her hips. She reports that she is able to walk and take care of her self, but walking causes pain. She denies any other pain, fever, vomiting, diarrhea, vision changes, urinary hesitancy/frequency/incontinence, constipation, weakness of any of her extremities. She reports baseline neuropathy in her legs which is unchanged, denies any other numbness or tingling. She reports baseline shortness of breath/cough that she attributes to COPD which is unchanged. Patient reports that she smokes cigarettes, denies recreational drug use, denies alcohol use. Has been eating and drinking as usual. Patient reports that she has been taking ibuprofen for pain without any relief. On exam patient is well-known to toxic appearing. There is tenderness to palpation at the L3 L5 area of the lumbar spine, also left flank and left iliac crest. No tenderness palpation of the left hip. Neurologic exam of lower extremities is benign. Patient is able to walk normally with somewhat slowed gait. Concern for syncope versus mechanical fall, possible fracture/bony pathology of the lumbar spine/pelvis, possible acute emergent intracranial process including trauma (patient on clopidogrel), metabolic/electrolyte derangement, arrhythmia, other. Doubt acute emergent intra-abdominal trauma. Imaging reviewed and non-diagnostic. Labs reviewed, Hgb 14.8, trop negative, D-dimer elevated. Concern for possible PE, recurrent syncope/near syncope possibly medication related. Plan for admission for further w/u including VQ scan (per facility protocol given national contrast dye shortage). Pt states that she is feeling improved and prefers to go home. I discussed the risks of leaving AMA with the patient including , permanent disability. Pt verbalizes understanding of the risks and continues to refuse further evaluation or treatment. Pt is A&Ox3, clear speech, lucid thought process, has capacity for decision making and informed refusal. I discussed with Pt that she may RTED at any time if she changes her mind. I had a discussion with Patient regarding return to emergency department precautions, home care, and importance of outpatient follow-up. Pt verbalizes understanding of the plan and is amenable. Patient discharged to home with clear plan for outpatient follow-up. All questions were answered. Disposition decision was made weighing the risks and benefits of hospitalization versus outpatient treatment, the risk for further decompensation, and the patient's wishes. Medical Records Medical records reviewed: Yes I reviewed the patient's medical records. Imaging Data Radiologic Study: Attestation: I personally reviewed and interpreted this imaging study as follows: Radiologist's impression: EXAM: ? CT HEAD WO CLINICAL HISTORY: ? trauma, on clopidogrel. ? TECHNIQUE:? Imaging Protocol: Axial computed tomography images with coronal and sagittal reformatted images were created and reviewed COMPARISON:? CT CT HEAD WO from 02/08/2022 FINDINGS: Ventricles and Extra axial spaces: Normal in size and morphology for the patient's age. Hemorrhage: None. Cerebral parenchyma: Normal. Midline shift: None. Brainstem/Cerebellum: Normal. Calvarium: Normal. Visualized Paranasal sinuses/Mastoids: Clear. Soft Tissues: Unremarkable. IMPRESSION: No acute intracranial process. Exam(s) CT ABDOMEN ? PELVIS WO CT LUMBAR SPINE WO EXAM:? CT ABDOMEN ? PELVIS WO CLINICAL HISTORY: ? trauma, left flank pain, low back pain.? TECHNIQUE:? Imaging Protocol: Axial computed tomography images with coronal and sagittal reformatted images were created and reviewed. Axial, coronal and sagittal images of the lower thoracic, lumbar spine and pelvis were reconstructed in bone algorithm. Oral: no COMPARISON:? CT CT CHEST PE CTA from 02/08/[address] LUMBAR SPINE WO from 03/06/2022 FINDINGS: ABDOMEN: Lung Bases: .? ? Lungs are clear.? No lower rib fractures. Liver: Enlarged with fatty infiltration..? No measurable mass. Gallbladder and biliary tract: Status post cholecystectomy.? No radiodense calculus or dilation. Pancreas: Normal density, no abnormal calcifications or inflammatory process. Spleen: Normal. Kidneys: Normal size, contour and axis. No radiodense stones or obstructive uropathy. No masses seen. Adrenal glands: No masses seen. Lymph nodes: Within normal limits. Abdominal Aorta: Abdominal portion non-dilated. Atherosclerotic changes. PELVIS:? Bladder: Symmetric distention, no gross wall thickening. Small amount of air in the bladder, presumably post catheterization. Bowel: Diverticulosis.? No obstruction or bowel wall thickening. Appendix normal. Peritoneal cavity: No ascites, collection or mesenteric inflammatory response. Reproductive organs: Uterine fibroids.? Adjacent surgical clip Bones: Degenerative changes of both hips.? Mild degenerative changes in the spine.? No spine or hip fractures. IMPRESSION: Unremarkable CT scan of the abdomen and pelvis.No evidence of lumbar spine or pelvic fractures. Lab Data Lab results reviewed: Yes I reviewed the patient's lab results. Labs: Laboratory Tests Range/Units 03/06/22 03/06/22 03/06/22 09:45 09:45 09:45 WBC (4.4-10.8) 10^3/uL 8.89 RBC (3.93-5.22) 10^6/uL 4.53 Hgb (11.2-15.7) g/dL 14.8 Hct (36.0-46.0) % 44.1 MCV (80-95) fL 97 H MCH (27.0-33.0) pg 32.7 MCHC (32.0-36.0) % 33.6 RDW (11.7-14.6) % 12.5 Plt Count (130-400) 10^3/uL 383 MPV (8.0-11.0) fL 9.3 Immature Gran % 0.2 Neutrophils % 56.6 Lymphocytes % 33.4 Monocytes % 6.6 Eosinophils % 2.6 Basophils % 0.6 Nucleated RBC % (0.0-0.3) % 0.0 Absolute Neutrophils (1.2-6.7) 10^3/uL 5.03 Absolute Lymphocytes (1.2-3.4) 10^3/uL 2.97 Absolute Monocytes (0.1-0.8) 10^3/uL 0.59 Absolute Eosinophils (0.0-0.7) 10^3/uL 0.23 Absolute Basophils (0.0-0.2) 10^3/uL 0.05 D-Dimer (<500) ng/mlFEU 1052 H Sodium (136-145) mmol/L 140 Potassium (3.5-5.1) mmol/L 4.2 Chloride (98-107) mmol/L 105 Carbon Dioxide (21.0-32.0) mmol/L 28.1 Anion Gap (3-11) mmol/L 6.9 BUN (7-18) mg/dL 12 Creatinine (0.55-1.02) mg/dL 0.8 Estimated GFR/1.73 m2 (mL/min/1.73m2) >= 60.00 Glucose (74-106) mg/dL 89 Calcium (8.5-10.1) mg/dL 9.2 Magnesium (1.8-2.4) mg/dL 2.7 H Total Bilirubin (0.2-1.0) mg/dL 0.2 AST (15-37) U/L 20 ALT (14-59) U/L 40 Alkaline Phosphatase (46-116) U/L 79 Troponin I (<or=60) ng/L < 50 Total Protein (6.4-8.2) g/dL 7.7 Albumin (3.4-5.0) g/dL 3.5 Urine Color (Yellow) Urine Clarity (Clear) Urine pH (5-8) Ur Specific [place] (1.005-1.025) Urine Protein (Negative) mg/dL Urine Ketones (Negative) mg/dL Urine Blood (Negative) Urine Nitrite (Negative) Urine Bilirubin (Negative) Urine Urobilinogen (Up TO 0.2) EU/dL Ur Leukocyte Esterase (Negative) Urine Glucose (Negative) mg/dL Range/Units 03/06/22 09:50 WBC (4.4-10.8) 10^3/uL RBC (3.93-5.22) 10^6/uL Hgb (11.2-15.7) g/dL Hct (36.0-46.0) % MCV (80-95) fL MCH (27.0-33.0) pg MCHC (32.0-36.0) % RDW (11.7-14.6) % Plt Count (130-400) 10^3/uL MPV (8.0-11.0) fL Immature Gran % Neutrophils % Lymphocytes % Monocytes % Eosinophils % Basophils % Nucleated RBC % (0.0-0.3) % Absolute Neutrophils (1.2-6.7) 10^3/uL Absolute Lymphocytes (1.2-3.4) 10^3/uL Absolute Monocytes (0.1-0.8) 10^3/uL Absolute Eosinophils (0.0-0.7) 10^3/uL Absolute Basophils (0.0-0.2) 10^3/uL D-Dimer (<500) ng/mlFEU Sodium (136-145) mmol/L Potassium (3.5-5.1) mmol/L Chloride (98-107) mmol/L Carbon Dioxide (21.0-32.0) mmol/L Anion Gap (3-11) mmol/L BUN (7-18) mg/dL Creatinine (0.55-1.02) mg/dL Estimated GFR/1.73 m2 (mL/min/1.73m2) Glucose (74-106) mg/dL Calcium (8.5-10.1) mg/dL Magnesium (1.8-2.4) mg/dL Total Bilirubin (0.2-1.0) mg/dL AST (15-37) U/L ALT (14-59) U/L Alkaline Phosphatase (46-116) U/L Troponin I (<or=60) ng/L Total Protein (6.4-8.2) g/dL Albumin (3.4-5.0) g/dL Urine Color (Yellow) Yellow Urine Clarity (Clear) Clear Urine pH (5-8) 7.0 Ur Specific [place] (1.005-1.025) 1.020 Urine Protein (Negative) mg/dL Negative Urine Ketones (Negative) mg/dL Negative Urine Blood (Negative) Negative Urine Nitrite (Negative) Negative Urine Bilirubin (Negative) Negative Urine Urobilinogen (Up TO 0.2) EU/dL 0.2 Ur Leukocyte Esterase (Negative) Negative Urine Glucose (Negative) mg/dL Negative ECG Data Attestation: I personally reviewed and interpreted this ECG (s) as follows: Interpretation: EKG shows sinus bradycardia at 58, normal axis, ST changes as seen on prior 02/08/22, no STEMI, nondiagnostic EKG HPI General Date/Time Provider Initiated Documentation: 03/06/22 09:03. Limitations to Documentation: no limitations. Information obtained by: patient and family. HPI Narrative: Sandra Smith is a 56-year-old woman with a history of coronary artery disease, COPD, GERD presenting to the emergency department with left-sided back pain. Patient reports that on the morning of 03/04/2022 patient took a shower. She reports that while getting out of the shower she fell, hitting her left lower back on either the outside of the shower or the toilet. Patient reports that she started taking prazosin to help with sleep on 03/02/2022. Patient reports that since starting that medication she has noticed that she feels quite lightheaded at night. She takes medication before bed, but typically gets up multiple times in the night to go to the bathroom and has noticed that she feels lightheaded when she gets up. She has also had some morning lightheadedness. Patient states that she is unsure whether her fall on the morning of 03/04 was due to a slipping as she got out of the shower or due to feeling lightheaded. She is unsure if she lost consciousness. She does not recall feeling lightheaded prior to fall, or other symptoms prior to fall. Patient states that she had left low back pain immediately after the fall, which has persisted. She reports that pain is worse with changing position, and flexing either of her hips. She reports that she is able to walk and take care of her self, but walking causes pain. She denies any other pain, fever, vomiting, diarrhea, vision changes, urinary hesitancy/frequency/incontinence, constipation, weakness of any of her extremities. She reports baseline neuropathy in her legs which is unchanged, denies any other numbness or tingling. She reports baseline shortness of breath/cough that she attributes to COPD which is unchanged. Patient reports that she smokes cigarettes, denies recreational drug use, denies alcohol use. Has been eating and drinking as usual. Patient reports that she has been taking ibuprofen for pain without any relief. Related Data Home Medications Medication Instructions Recorded Confirmed furosemide 40 mg tablet (Lasix) 40 mg PO PRN PRN 05/25/19 03/06/22 loratadine 10 mg tablet 10 mg PO DAILY AM 05/25/19 03/06/22 clopidogrel 75 mg tablet (Plavix) 75 mg PO DAILY AM #14 tabs 07/30/19 03/06/22 gabapentin 300 mg capsule 300 mg PO TID 14 days #42 caps 07/30/19 03/06/22 atorvastatin 40 mg tablet 40 mg PO DAILY 12/06/21 03/06/22 clotrimazole 1 % topical cream 1 applic topical BID 12/06/21 03/06/22 epinephrine 0.3 mg/0.3 mL 0.3 mg IM ONCE 12/06/21 03/06/22 injection, auto-injector fluticasone propionate 50 1 spray intranasal DAILY 12/06/21 03/06/22 mcg/actuation nasal spray,suspension inhalational spacing device 12/06/21 (Aerochamber Mini) nicotine 21 mg/24 hr daily 1 patch transdermal DAILY 12/06/21 03/06/22 transdermal patch omeprazole 40 mg capsule,delayed 40 mg PO DAILY 12/06/21 03/06/22 release budesonide 160 mcg-glycopyr 9 2 inh inhalation BID #10.7 grams 02/17/22 03/06/22 mcg-formot 4.8 mcg/actuation HFA inhaler (Breztri Aerosphere) ipratropium 0.5 mg-albuterol 3 mg 3 ml inhalation QID PRN 02/17/22 03/06/22 (2.5 mg base)/3 mL nebulization soln prazosin 1 mg capsule 1 cap PO .QHS 03/06/22 03/06/22 Previous Rx's Medication Instructions Recorded clopidogrel 75 mg tablet (Plavix) 75 mg PO DAILY AM #14 tabs 07/30/19 gabapentin 300 mg capsule 300 mg PO TID 14 days #42 caps 07/30/19 budesonide 160 mcg-glycopyr 9 2 inh inhalation BID #10.7 grams 02/17/22 mcg-formot 4.8 mcg/actuation HFA inhaler (Breztri Aerosphere) Allergies Allergy/AdvReac Type Severity Reaction Status Date / Time aspirin Allergy Severe Anaphylaxsi Unverified 03/06/22 08:53 s buspirone [From BuSpar] Allergy Unverified 03/06/22 08:54 codeine Allergy Unverified 03/06/22 08:53 nitroglycerin Allergy Unverified 03/06/22 08:53 [From Nitroglyn] General Stated Complaint: Nk/Back Pain PENNY: 4 Review of Systems Narrative: Constitutional: denies fevers Eyes: denies eye pain, vision changes ENT: denies ear pain, dental pain, sore throat Cardiovascular: denies chest pain, edema Respiratory: Reports unchanged baseline SOB, cough GI: denies abdominal pain, vomiting, diarrhea, constipation : Reports left flank pain, denies urinary hesitancy/retention, incontinence, hematuria MSK: denies neck pain, arthralgias, myalgias, reports slight left lower back pain Skin: denies rash Neuro: denies headaches, weakness, saddle anesthesia, reports baseline unchanged numbness in both her legs PFSH All Active Problems (Updated 03/11/22 @ 00:01 by YADI DOYLE) Back pain (Acute) Lightheadedness (Acute) Nicotine dependence, unspecified, uncomplicated (Acute) Dyspnea (Acute) Difficulty sleeping (Acute) Chronic post-traumatic stress disorder (PTSD) (Acute) Excoriation (skin-picking) disorder (Acute) Major depressive disorder (Chronic) Myocardial infarction (Chronic) Chronic fatigue (Acute) COPD (chronic obstructive pulmonary disease) (Chronic) GERD without esophagitis (Acute) Post traumatic stress disorder (Acute) Bipolar disorder (Acute) ASCVD (arteriosclerotic cardiovascular disease) (Acute) Xanthelasma of left eye, unspecified eyelid (Acute) Medical History Hyperlipidemia Family History Mother COPD (chronic obstructive pulmonary disease) High cholesterol Hypertension Heart disease Stroke Daughter Affective bipolar disorder Son Osteoarthritis Asthma Sister High cholesterol Osteoporosis Diabetes Hypertension Heart disease Cancer Maternal Grandfather Diabetes Maternal Grandmother Diabetes Paternal Grandmother Diabetes Social History Smoking/Tobacco Use Status: Current every day Tobacco Type: cigarettes Smoking packs per day: 0.7 Smoking cigarettes per day: 14.0 Smoking risk assessment performed?: Yes Alcohol Intake: never Drug use: Never Substance use type: does not use Do you feel safe at home: Yes Do you feel safe in your relationship?: Yes Exam Narrative Exam Narrative: Constitutional: well and [id number], pleasant, conversing normally HENT: head atraumatic/normocephalic/normal inspection, mucous membranes moist Eyes: conjunctiva normal, sclera normal, pupils 3mm b/l Neck: no stridor, normal ROM, trachea midline, no cervical spine tenderness palpation Resp: normal work of breathing, speaking in full sentences Cardio: normal rate, normal rhythm GI: abdomen soft, non-tender, non-distended, mild left CVA tenderness palpation, no right CVA tenderness to palpation Back: normal inspection, no rash, no thoracic tenderness to palpation, tenderness to palpation over L3-L5, tenderness to palpation left paraspinal area and iliac crest, no anterior/lateral left hip tenderness to palpation Skin: warm, dry, normal color, no rash Neuro: alert, not altered, grossly non-focal, normal tone, gait slow but otherwise normal, motor 5-5 bilateral lower extremities, sensation bilateral lower extremities intact and symmetric Ext: no edema, range of motion left hip limited somewhat secondary to pain in back, full painless range of motion left knee and ankle, normal range of motion right hip/knee/ankle Psych: normal mood, normal affect, normal behavior Course Vital Signs Vital signs: Vital Signs Temperature 36.3 C L 03/06/22 08:49 Pulse 71 03/06/22 08:49 Respiratory Rate 16 03/06/22 08:49 Blood Pressure 142/63 H 03/06/22 08:49 Pulse Oximetry 98 03/06/22 08:49 Temperature 36.3 C L 03/06/22 08:49 Temperature Source Temporal Artery Scan 03/06/22 08:49 Pulse 71 03/06/22 08:49 Respiratory Rate 16 03/06/22 08:49 Respiratory Effort 03/06/22 08:49 Blood Pressure 142/63 H 03/06/22 08:49 Blood Pressure Position Sitting 03/06/22 08:49 Pulse Oximetry 98 03/06/22 08:49 Oxygen Delivery Method Room Air 03/06/22 08:49 Oxygen Flow Rate 0 03/06/22 08:49 Pain Level 10 03/06/22 08:49
[2022-03-06 09:52] LABS: Abs Immature Grans 0.02 10^3/uL (0.0-0.06); Absolute Basophil Count 0.05 10^3/uL (0.0-0.2); Absolute Eosinophil Count 0.23 10^3/uL (0.0-0.7); Absolute Lymphocyte Count 2.97 10^3/uL (1.2-3.4); Absolute Monocyte Count 0.59 10^3/uL (0.1-0.8); Absolute Neutrophil Count 5.03 10^3/uL (1.2-6.7); Basophils % 0.6; Eosinophils % 2.6; HCT 44.1 % (36.0-46.0); HGB 14.8 g/dL (11.2-15.7); Immature Grans % 0.2; Lymphocytes % 33.4; MCH 32.7 pg (27.0-33.0); MCHC 33.6 % (32.0-36.0); MCV 97 fL (80-95); MPV 9.3 fL (8.0-11.0); Monocytes % 6.6; Neutrophils % 56.6; Platelet Count 383 10^3/uL (130-400); RBC 4.53 10^6/uL (3.93-5.22); RDW 12.5 % (11.7-14.6); RDW-SD 45.1 fL; WBC 8.89 10^3/uL (4.4-10.8)
[2022-03-06] MEDS: Normal Saline 1,000 ML 1000 ML IV (09:53)
[2022-03-06] MEDS: Normal Saline Flush 10 ML SYR IVP (09:53)
[2022-03-06 10:01] LABS: Bilirubin Negative (Negative); Blood Negative (Negative); Clarity Clear (Clear); Glucose Negative (Negative); Ketones Negative (Negative); Leukocyte Esterase Negative (Negative); Nitrite Negative (Negative); Urobilinogen 0.2 EU/dL (Up TO 0.2)
[2022-03-06 10:06] LABS: ALT 40 U/L (14-59); AST 20 U/L (15-37); Albumin 3.5 g/dL (3.4-5.0); Alkaline Phosphatase 79 U/L (46-116); Anion Gap 6.9 mmol/L (3-11); BUN 12 mg/dL (7-18); Bilirubin, Total 0.2 mg/dL (0.2-1.0); CO2 28.1 mmol/L (21.0-32.0); CREATININE 0.8 mg/dL (0.55-1.02); Calcium 9.2 mg/dL (8.5-10.1); Chloride 105 mmol/L (98-107); Glucose 89 mg/dL (74-106); Magnesium 2.7 mg/dL (1.8-2.4); Potassium 4.2 mmol/L (3.5-5.1); Sodium 140 mmol/L (136-145); Total Protein 7.7 g/dL (6.4-8.2); Troponin I < 50 ng/L (<or=60)
[2022-03-06 10:32] LABS: D-Dimer 1052 ng/mlFEU (<500)
--- NOTE | 2022-03-06 10:43 | DI.CT_ITS ---
Exam(s) CT HEAD WO EXAM: CT HEAD WO CLINICAL HISTORY: trauma, on clopidogrel. TECHNIQUE: Imaging Protocol: Axial computed tomography images with coronal and sagittal reformatted images were created and reviewed COMPARISON: CT CT HEAD WO from 02/08/2022 FINDINGS: Ventricles and Extra axial spaces: Normal in size and morphology for the patient's age. Hemorrhage: None. Cerebral parenchyma: Normal. Midline shift: None. Brainstem/Cerebellum: Normal. Calvarium: Normal. Visualized Paranasal sinuses/Mastoids: Clear. Soft Tissues: Unremarkable. IMPRESSION: No acute intracranial process. RADIATION DOSE DELIVERED: 738.71mGy.cm Total DLP DATA REPOSITORY: All CT scans at this facility are submitted to the National Radiology Data Registry (NRDR) Dose Index Registry (DIR) with the [employer] ([employer]). RADIATION OPTIMIZATION: All CT scans at this facility use at least one of these dose optimization te chniques: automated exposure control; mA and/or kV adjustment per patient size (includes targeted exa ms where dose is matched to clinical indication); or iterative reconstruction.
--- NOTE | 2022-03-06 10:55 | DI.CT_ITS ---
Exam(s) CT ABDOMEN PELVIS WO CT LUMBAR SPINE WO EXAM: CT ABDOMEN PELVIS WO CLINICAL HISTORY: trauma, left flank pain, low back pain. TECHNIQUE: Imaging Protocol: Axial computed tomography images with coronal and sagittal reformatted images were created and reviewed. Axial, coronal and sagittal images of the lower thoracic, lumbar spine and pelvis were reconstructed in bone algorithm. Oral: no COMPARISON: CT CT CHEST PE CTA from 02/08/[address] LUMBAR SPINE WO from 03/06/2022 FINDINGS: ABDOMEN: Lung Bases: . Lungs are clear. No lower rib fractures. Liver: Enlarged with fatty infiltration.. No measurable mass. Gallbladder and biliary tract: Status post cholecystectomy. No radiodense calculus or dilation. Pancreas: Normal density, no abnormal calcifications or inflammatory process. Spleen: Normal. Kidneys: Normal size, contour and axis. No radiodense stones or obstructive uropathy. No masses seen. Adrenal glands: No masses seen. Lymph nodes: Within normal limits. Abdominal Aorta: Abdominal portion non-dilated. Atherosclerotic changes. PELVIS: Bladder: Symmetric distention, no gross wall thickening. Small amount of air in the bladder, presumab ly post catheterization. Bowel: Diverticulosis. No obstruction or bowel wall thickening. Appendix normal. Peritoneal cavity: No ascites, collection or mesenteric inflammatory response. Reproductive organs: Uterine fibroids. Adjacent surgical clip Bones: Degenerative changes of both hips. Mild degenerative changes in the spine. No spine or hip f ractures. IMPRESSION: Unremarkable CT scan of the abdomen and pelvis.No evidence of lumbar spine or pelvic fractures. RADIATION DOSE DELIVERED: 816.15mGy.cm Total DLP DATA REPOSITORY: All CT scans at this facility are submitted to the National Radiology Data Registry (NRDR) Dose Index Registry (DIR) with the [employer] ([employer]). RADIATION OPTIMIZATION: All CT scans at this facility use at least one of these dose optimization te chniques: automated exposure control; mA and/or kV adjustment per patient size (includes targeted exa ms where dose is matched to clinical indication); or iterative reconstruction.
[2022-03-06] MEDS: Acetaminophen 325 MG TAB (11:11)
== END 2022-03-06 13:25 | disposition left against medical advice (07) ==
PROVIDERS: Emergency Provider Student in an Organized Health Care Education/Training Program; PCP Nurse Practitioner Family
DX: M54.50 Low back pain, unspecified (principal); R42 Dizziness and giddiness; Z53.29 Procedure and treatment not carried out because of patient's decision for other reasons; R10.9 Unspecified abdominal pain; Z79.02 Long term (current) use of antithrombotics/antiplatelets; W18.39XA Other fall on same level, initial encounter
CPT/HCPCS: 36415; 80053; 93005; 96360; 99284; 70450; 72131; 74176; 81003; 83735; 84484; 85025; 85379; 93010

== ENCOUNTER 2022-03-16 03:29 | Outpatient (CLI) | payer MEDICAID, SELFPAY ==
[2022-03-16] MEDS: Albuterol HFA 18 GM 200 PUFF INH IH (15:33)
[2022-03-16] MEDS: Inhaler, Assist Device 1 EACH MC (15:34)
--- NOTE | 2022-03-20 10:27 | W.PFT ---
Date of service: 03/16/22 Time of Service: 14:44 Pulmonary Function Test Result Requesting Provider Duchene Indications: Dyspnea Interpretation Spirometry: No airflow limitation. Restrictive appearing spirometry. No significant bronchodilator response. MIP and MEP are both significantly reduced. Lung Volumes: Likely some air trapping. Diffusion Capacity: Reduced diffusion Impression No airflow obstruction. Significantly decreased MIP and MEP resulting in a low FVC. Note: When compared to 12/01/21, the FEV1 and FVC are improved. Clinical Correlation therefore is recommended.
== END 2022-03-16 03:30 | disposition home or self-care (01) ==
LOC: RT 03:29
PROVIDERS: PCP Nurse Practitioner Family; Visit Provider Student in an Organized Health Care Education/Training Program
DX: R06.09 Other forms of dyspnea (principal)
CPT/HCPCS: 94060; 94726; 94729